=== PATIENT | female | born 1990 | race Caucasian/White ===

== ENCOUNTER 2022-04-15 15:50 | Inpatient (IN) | payer MEDICAID ==
[~2022-04-15] VITALS: Ht 167.6 cm; Wt 122.9 kg
[2022-04-15 16:02] VITALS: BP_SYST 115
--- NOTE | 2022-04-15 16:33 | NUR ---
MD STEPHENSON IN TRIAGE FOR MSE
[2022-04-15 16:39] LABS: BASOPHILS % (AUTO) 0.3 % (0.0-2.0); EOSINOPHILS # (AUTO) 0.1 K/uL (0.0-0.4); EOSINOPHILS % (AUTO) 0.8 % (0.0-4.0); HEMATOCRIT 37.1 % (36-48); HEMOGLOBIN 11.9 g/dL (12.0-16.0); MEAN CORPUSCULAR HEMOGLOBIN 21 pg (27-31); MEAN CORPUSCULAR HGB CONC 32 % (32-36); MEAN CORPUSCULAR VOLUME 67 fL (79.0-98.0); MONOCYTES # (AUTO) 0.7 K/uL (0.0-1.0); MONOCYTES % (AUTO) 7.9 % (1.7-9.3); NEUTROPHILS # (AUTO) 4.6 K/uL (1.8-7.7); PLATELET COUNT (AUTO) 199 K/uL (130-430); RED BLOOD CELL COUNT(AUTO) 5.53 MIL/uL (4.2-6.2); RED CELL DISTRIBUTION WIDTH 16.3 % (9.0-15.0); WHITE BLOOD COUNT (AUTO) 8.3 K/uL (4.8-10.8)
[2022-04-15 17:22] LABS: CREATININE 0.68 mg/dL (0.55-1.30)
[2022-04-15 17:25] LABS: ALBUMIN 3.5 g/dL (3.4-4.8)
--- NOTE | 2022-04-15 18:47 | NUR ---
PT BROUGHT BACK TO ROOM 3, CHANGING INTO GOWN. AAOX4. VSS. CARE ENDORSED TO ROBERT SAGE. BOTH SIDE RAILS UP.
--- NOTE | 2022-04-15 19:05 | NUR ---
Pt walked in to ER with c/o abdominal pain, n/v and fever x3 days. Denies any urinary symptoms. Reports h/o gastric bypass. V/S stable.
[2022-04-15 19:39] LABS: BLOOD, URINE NEGATIVE (NEGATIVE); CLARITY/URINE SL CLOUDY (CLEAR); COLOR,URINE YELLOW (YELLOW); GLUCOSE,URINE NEGATIVE (NEGATIVE); KETONES,URINE NEGATIVE (NEGATIVE); LEUKOCYTE ESTERASE ,URINE 2+ (NEGATIVE); NITRITE, URINE NEGATIVE (NEGATIVE); PROTEIN URINE NEGATIVE (NEGATIVE)
[2022-04-15 19:44] LABS: BILIRUBIN,URINE NEGATIVE (NEGATIVE)
--- NOTE | 2022-04-15 19:58 | NUR ---
Admit bed requested Patient will be admitted to care of . Admitted to MED SURG unit. Diagnosis : PANCREATITIS Inpatient (Yes or No) Y Observation (Yes or No) N Orientation concerns or request close to nursing station (Yes or No) N Covid Status : PENDING From Home (Yes or if No enter name of facility) Y
[2022-04-15] MEDS ORDERED: ONDANSETRON HCL 4 MG/2 ML VIAL IVP PRN ×2 (20:00→20:30)
--- NOTE | 2022-04-15 20:00 | NUR ---
# 22 gauge angiocath placed to L HAND. Use of asceptic technique. Opsite placed over site. Blood return noted. Flushed with 10 cc of normal saline. No evidence of infiltration noted. Patient tolerated well. Addendum: 04/15/22 at 2229 by [id number] Barbara RODGERS
[2022-04-15 20:12] LABS: BACTERIA,URINE MODERATE /HPF (None Seen); MUCUS,URINE 1+ /LPF (None Seen); RBC,URINE NONE SEEN /HPF (0-3)
[2022-04-15] MEDS: D5NS 1,000 ML IV SCH (20:28)
[2022-04-15] MEDS ORDERED: ZOLPIDEM TARTRATE 5 MG TABLET PO PRN (20:30)
[2022-04-15] MEDS ORDERED: DOCUSATE SODIUM 100 MG CAPSULE PO PRN (20:30)
[2022-04-15] MEDS ORDERED: LORazepam 2 MG/ML VIAL IVP PRN (20:30)
[2022-04-15] MEDS ORDERED: POTASSIUM CHLORIDE 20 MEQ TAB.PRT.SR PO PRN (20:30)
[2022-04-15] MEDS ORDERED: NALOXONE HCL 0.4 MG/ML AMP (NARCAN) IVP PRN ×2 (20:30)
[2022-04-15] MEDS ORDERED: ACETAMINOPHEN 325 MG TABLET PO PRN ×2 (20:30→20:45)
[2022-04-15] MEDS ORDERED: MORPHINE 2 MG/ML INJ. SYRINGE IVP PRN ×2 (20:30)
[2022-04-15] MEDS ORDERED: MUPIROCIN 2% TOPICAL OINTMENT 22 GM NS PRN (20:30)
[2022-04-15] MEDS ORDERED: MAGNESIUM SULFATE 50 ML IV PRN (20:30)
[2022-04-15] MEDS: cefTRIAXone 1 GM in D5W 50 ML IV SCH (21:19)
[2022-04-15] MEDS ORDERED: cefTRIAXone 1 GM VIAL ONE (21:20)
--- NOTE | 2022-04-15 22:38 | NUR ---
Patient will be admitted to care of MD ZAMARRIPA. Admitted to MS unit. Will go to room 122B. Complete and up to date summary report printed. SBAR report given at bedside to ALONA Shook with opportunity for questions.
[2022-04-15 23:22] VITALS: BP_SYST 130
[2022-04-16] VITALS: BP_SYST 127
[2022-04-16] MEDS: D5NS 1,000 ML IV SCH ×4 (03:33→23:27)
[2022-04-16 04:00] VITALS: BP_SYST 119
[2022-04-16 07:36] LABS: ALBUMIN 2.8 g/dL (3.4-4.8); CALCIUM 8.5 mg/dL (8.4-11.0); CREATININE 0.69 mg/dL (0.55-1.30); TOTAL BILIRUBIN 0.6 mg/dL (0.0-1.0)
--- NOTE | 2022-04-16 08:00 | NUR ---
Initial Received patient AAOx4, no signs of distress. IV infusing to right hand patent. all safety/precaution secured, bed in low position, call light w/in reached.
[2022-04-16 08:10] VITALS: BP_SYST 113
[2022-04-16 08:37] LABS: BASOPHILS % (AUTO) 0.7 % (0.0-2.0); EOSINOPHILS # (AUTO) 0.1 K/uL (0.0-0.4); EOSINOPHILS % (AUTO) 1.4 % (0.0-4.0); HEMATOCRIT 37.3 % (36-48); HEMOGLOBIN 11.6 g/dL (12.0-16.0); LYMPHOCYTES # (AUTO) 3.2 K/uL (1.0-5.5); LYMPHOCYTES % (AUTO) 57.4 % (20.5-51.5); MEAN CORPUSCULAR HEMOGLOBIN 21 pg (27-31); MEAN CORPUSCULAR HGB CONC 31 % (32-36); MEAN CORPUSCULAR VOLUME 69 fL (79.0-98.0); MONOCYTES # (AUTO) 0.5 K/uL (0.0-1.0); MONOCYTES % (AUTO) 8.6 % (1.7-9.3); NEUTROPHILS # (AUTO) 1.8 K/uL (1.8-7.7); NEUTROPHILS % (AUTO) 31.9 % (40.0-70.0); PLATELET COUNT (AUTO) 169 K/uL (130-430); RED BLOOD CELL COUNT(AUTO) 5.42 MIL/uL (4.2-6.2); RED CELL DISTRIBUTION WIDTH 16.7 % (9.0-15.0); WHITE BLOOD COUNT (AUTO) 5.5 K/uL (4.8-10.8)
[2022-04-16] MEDS: MORPHINE 2 MG/ML INJ. SYRINGE IVP PRN ×2 (10:30→17:56)
[2022-04-16 12:10] VITALS: BP_SYST 121
--- NOTE | 2022-04-16 14:10 | NUR ---
Page Dr. Rondon regarding consult to see patient
--- NOTE | 2022-04-16 14:30 | NUR ---
Dr. Rondon states he will see patient approximately [id number]
[2022-04-16 16:00] VITALS: BP_SYST 118
--- NOTE | 2022-04-16 18:11 | NUR ---
Paged Dr. Rondon, patient emotionally crying wants to see MD. Notified patient doctor on his way.
--- NOTE | 2022-04-16 19:00 | NUR ---
Closing Patient stable no c/o pain/SOB at this time, medicated as ordered. IV to right hand patent. All safety precaution secured, will endorse.
[2022-04-16] MEDS ORDERED: NALOXONE HCL 0.4 MG/ML AMP (NARCAN) IVP PRN (19:45)
[2022-04-16 20:00] VITALS: BP_SYST 129
--- NOTE | 2022-04-16 20:30 | NUR ---
Opening notes Pt AAOx4, VSS, afebrile. Pt states abd pain is ok at this time. Pt was advanced to clear liquid diet. Provided pt with apple juice and ice water, pt tolerated well. No c/o N/V. IVF infusing at ordered rate R. hand 22G good blood return. Call light within reach. To monitor.
[2022-04-16] MEDS: cefTRIAXone 1 GM in D5W 50 ML IV SCH (20:41)
--- NOTE | 2022-04-16 23:27 | NUR ---
Rounds Pt asleep, no s/s distress . Call light within reach. To monitor.
--- NOTE | 2022-04-17 00:23 | NUR ---
CONSULTATION CALLED FOR DR. Carson CASTRO FOR CONSULT OF [place] PANCREATITIS ORDER BY DR. ZAMARRIPA SPOKE WITH TATE
--- NOTE | 2022-04-17 00:27 | NUR ---
DR. CASTRO CALLED BACK AND STATE HE SAW PATIENT IN THE AFTERNOON 04/16/2022
--- NOTE | 2022-04-17 00:30 | NUR ---
CONSULTATION CALLED FOR DR. RANDY BURTON IS INCOME [employer] CONSULTANT FOR CONSULT OF GALLSTONE PANCREATITIS ORDER BY DR. ZAMARRIPA SPOKE WITH CHIQUITA
[2022-04-17 01:31] VITALS: BP_SYST 109; BP_SYST 132
[2022-04-17] MEDS: D5NS 1,000 ML IV SCH ×3 (04:19→17:59)
--- NOTE | 2022-04-17 06:20 | NUR ---
Closing notes Pt asleep, no s/s distress, no c/o pain or N/V at this time. IVF infusing at ordered rate R. hand 22G clear and patent. Call light within reach. To endorse to AM nurse.
[2022-04-17 07:48] LABS: ALBUMIN 2.6 g/dL (3.4-4.8); BILIRUBIN,DIRECT 0.2 mg/dL (0.0-0.3); CALCIUM 8.4 mg/dL (8.4-11.0); CREATININE 0.62 mg/dL (0.55-1.30); TOTAL BILIRUBIN 0.6 mg/dL (0.0-1.0)
--- NOTE | 2022-04-17 08:00 | NUR ---
OPENING NOTES ALERT AND ORIENTED. NO SHORTNESS OF BREATH ON ROOM AIR. NO PAIN. IV INFUSING WELL. SAFETY CHECKS DONE. CALL LIGHT WITHIN REACH.
[2022-04-17 08:13] VITALS: BP_SYST 133
--- NOTE | 2022-04-17 09:00 | NUR ---
MD ROUNDS SEEN BY DR. ZAMARRIPA. INFORMED THAT THERE IS NO ORDER FOR A PROCEDURE YET FROM DR. CASTRO.
[2022-04-17 11:09] VITALS: BP_SYST 103
--- NOTE | 2022-04-17 12:40 | NUR ---
ROUNDS MAINTAINED ON NPO. SWABBED FOR MRSA SCREENING. SAFETY CHECKS DONE. CALL LIGHT WITHIN REACH.
--- NOTE | 2022-04-17 13:00 | NUR ---
CONSENT PER PATIENT, DR. CASTRO ALREADY TALKED TO HER ABOUT PROCEDURE. WITNESSED CONSENT.
--- NOTE | 2022-04-17 15:30 | NUR ---
Dietitian Recommendations * Consider Clear Liquid diet post-surgery * When appropriate, consider advancing to GI Soft diet Submitted for Kimberley Oh by Mirela Nunez, MPH, RD Please see Nutrition Assessment for further details Addendum: 04/17/22 at [address] Amended: Links added.
[2022-04-17 16:39] LABS: HCG,QUAL RESULT NEGATIVE (NEGATIVE)
[2022-04-17 17:16] VITALS: BP_SYST 109
--- NOTE | 2022-04-17 18:20 | NUR ---
CLOSING NOTES RESTING. NO SHORTNESS OF BREATH. NO PAIN. IV INFUSING WELL. PATIENT IS AWARE THAT PROCEDURE WAS MOVED TO 1999. KEPT ON NPO. ALL NEEDS MET THROUGHOUT SHIFT. SAFETY CHECKS DONE. CALL LIGHT WITHIN REACH.
[2022-04-17 19:30] VITALS: BP_SYST 133
--- NOTE | 2022-04-17 19:46 | NUR ---
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 VSS. Mom at bedside.
[2022-04-17] MEDS ORDERED: BUPIVACAINE /EPINEPHRINE/PF 0.5% 30 ML VIAL INJ ONE (20:00)
[2022-04-17] MEDS ORDERED: SUGAMMADEX SODIUM 200 MG/2 ML VIAL IV ONE (20:00)
[2022-04-17] MEDS ORDERED: ROCURONIUM BROMIDE 10 MG/ML (ZEMURON) ONE (20:00)
[2022-04-17] MEDS ORDERED: ONDANSETRON HCL 4 MG/2 ML VIAL ONE (20:00)
[2022-04-17] MEDS ORDERED: DEXAMETHASONE SOD PHOSPHATE 4 MG/ML VIAL ONE (20:00)
[2022-04-17] MEDS ORDERED: METOCLOPRAMIDE HCL 10 MG/2 ML VIAL ONE (20:00)
[2022-04-17] MEDS ORDERED: ceFAZolin SODIUM 1 GM VIAL ONE (20:00)
[2022-04-17] MEDS ORDERED: HYDROmorphone 2 MG/ML VIAL ONE (20:00)
[2022-04-17] MEDS ORDERED: ePHEDrine sulfate 50 MG/ML VIAL ONE (20:00)
[2022-04-17] MEDS ORDERED: NS 1000 ML IV.SOLN IV ONE (20:00)
[2022-04-17] MEDS ORDERED: PROPOFOL 200MG/ 20ML VIAL (DIPRIVAN) IV ONE (20:00)
[2022-04-17] MEDS ORDERED: NS IRRIG SOLN 1000 ML IR ONE (20:00)
[2022-04-17] MEDS ORDERED: MIDAZOLAM HCL 2 MG/2 ML VIAL (VERSED) ONE (20:00)
[2022-04-17] MEDS ORDERED: LR 1,000 ML IV.SOLN IV ONE (20:00)
[2022-04-17] MEDS ORDERED: SEVOFLURANE 15 MIN GAS INH ONE (20:00)
[2022-04-17] MEDS ORDERED: KETOROLAC TROMETHAMINE 30 MG VIAL IVP PRN (22:00)
[2022-04-17] MEDS ORDERED: HYDROmorphone 1 MG/ML INJ. CARTRIDGE IVP PRN ×2 (22:00)
[2022-04-17] MEDS ORDERED: NALOXONE HCL 0.4 MG/ML AMP (NARCAN) IVP PRN ×4 (22:00→22:30)
[2022-04-17] MEDS ORDERED: ONDANSETRON HCL 4 MG/2 ML VIAL IVP PRN (22:00)
[2022-04-17] MEDS ORDERED: HYDROcodone/ACETAMIN 5-325 MG TAB (NORCO/ VICODIN) PO PRN (22:30)
[2022-04-17] MEDS ORDERED: KETOROLAC TROMETHAMINE 30 MG VIAL ONE (22:36)
--- NOTE | 2022-04-17 22:59 | NUR ---
BACK FROM SURGERY Received pt back from PACU, report received from ALONA Wong. Pt AAOx4, VSS, on room air. Abd incision lap sites x4, dressing C/D/I. Pt states pain is tolerable at this time. Pt was medicated with Toradol in PACU. IVF connected back as ordered and IV abx administered. Call light within reach. Mom at bedside. To monitor.
[2022-04-17] MEDS: cefTRIAXone 1 GM in D5W 50 ML IV SCH (23:12)
--- NOTE | 2022-04-17 23:20 | NUR ---
Rounds/Incentive Spirometer Pt instructed to use I.S. 10x while awake, pt ableto do 1000ml 3x.
[2022-04-17] MEDS: HYDROmorphone 1 MG/ML INJ. CARTRIDGE IM PRN (23:33)
[2022-04-18 00:42] VITALS: BP_SYST 144
[2022-04-18] MEDS: D5NS 1,000 ML IV SCH ×2 (01:30→06:53)
[2022-04-18] MEDS: HYDROmorphone 1 MG/ML INJ. CARTRIDGE IM PRN (03:40)
--- NOTE | 2022-04-18 06:20 | NUR ---
Closing notes/Ambulated Pt alert, awake, no s/s distress noted. Pt disconnected from IV and SCDs at this time. Pt ambulated to bathroom, pt denies dizziness. Pt voided dark yellow urine 600ml. Abd lap sites C/D/I. Call light within reach. To endorse to AM nurse.
[2022-04-18 07:56] LABS: ALBUMIN 3.1 g/dL (3.4-4.8); CALCIUM 8.9 mg/dL (8.4-11.0); CREATININE 0.67 mg/dL (0.55-1.30); TOTAL BILIRUBIN 0.6 mg/dL (0.0-1.0)
[2022-04-18] MEDS ORDERED: HYDR-3917 PO (08:24)
[2022-04-18 11:45] VITALS: BP_SYST 124
--- NOTE | 2022-04-18 13:00 | NUR ---
patient c/o 08/17 pain in abdomen, norco administered per emar
--- NOTE | 2022-04-18 13:10 | NUR ---
Telephone call to Dr. Rondon, patient cleared to [facility]
[2022-04-18 14:10] VITALS: BP_SYST 124
--- NOTE | 2022-04-18 15:25 | NUR ---
patient dc home, alert and oriented able to verbalize needs, dc education provided regarding meds, post op care, follow up appointments and when to seek medical attention, iv in r hand dc with cath intact, wheeled out to lobby by aircraft manager, transported home via private car, no further concerns
== END 2022-04-18 15:10 | disposition home or self-care (01) | DRG 263 ==
LOC: SED 15:50 → SMU 19:53
PROVIDERS: ADMIT General Practice; ATTEND General Practice
PROC: BF131ZZ Fluoroscopy of Gallbladder and Bile Ducts using Low Osmolar Contrast (ICD-10-PCS; 2022-04-17)
PROC: 0FT44ZZ Resection of Gallbladder, Percutaneous Endoscopic Approach (ICD-10-PCS; principal; 2022-04-17 20:00)
DX: K85.10 Biliary acute pancreatitis without necrosis or infection (principal); E83.41 Hypermagnesemia; K80.10 Calculus of gallbladder with chronic cholecystitis without obstruction; E66.01 Morbid (severe) obesity due to excess calories; N39.0 Urinary tract infection, site not specified; K21.9 Gastro-esophageal reflux disease without esophagitis; Z20.822 Contact with and (suspected) exposure to COVID-19; F12.10 Cannabis abuse, uncomplicated; K66.0 Peritoneal adhesions (postprocedural) (postinfection); R74.01 Elevation of levels of liver transaminase levels; Z98.84 Bariatric surgery status; Z68.41 Body mass index [BMI] 40.0-44.9, adult
CPT/HCPCS: 36415; 76000; 76705; 80048; 80053; 80061; 80076; 81000; 83037; 83690; 83735; 84703; 85025; 87081; 87086; 88304; 99285; C1727; C1758; J0690; J0696; J1100; J1170; J1885; J2270; J2405; J2704; J2765; J3465; J3490; J7030; J7060; J7120; Q9967

== ENCOUNTER 2022-10-20 18:57 | Emergency (ER) | payer MEDICAID ==
[~2022-10-20] VITALS: Ht 167.6 cm; Wt 131.5 kg
[~2022-10-20 18:57] MED LIST: HYDR-3917 PO
[2022-10-20 19:33] VITALS: BP_SYST 125; PULSE 74; RESP 18; TEMP 98.3; O2SAT 98
[2022-10-20] MEDS ORDERED: ONDANSETRON 4 MG ODT TAB PO ONE (19:45)
[2022-10-20 20:10] LABS: BASOPHILS # (AUTO) 0.1 K/uL (0.0-0.2); BASOPHILS % (AUTO) 0.6 % (0.0-2.0); EOSINOPHILS # (AUTO) 0.1 K/uL (0.0-0.4); EOSINOPHILS % (AUTO) 0.6 % (0.0-4.0); HEMATOCRIT 40.1 % (36-48); HEMOGLOBIN 12.3 g/dL (12.0-16.0); LYMPHOCYTES # (AUTO) 3.2 K/uL (1.0-5.5); LYMPHOCYTES % (AUTO) 29.4 % (20.5-51.5); MEAN CORPUSCULAR HEMOGLOBIN 20 pg (27-31); MEAN CORPUSCULAR HGB CONC 31 % (32-36); MEAN CORPUSCULAR VOLUME 66 fL (79.0-98.0); MONOCYTES # (AUTO) 0.6 K/uL (0.0-1.0); MONOCYTES % (AUTO) 5.8 % (1.7-9.3); NEUTROPHILS % (AUTO) 63.6 % (40.0-70.0); PLATELET COUNT (AUTO) 222 K/uL (130-430); RED BLOOD CELL COUNT(AUTO) 6.09 MIL/uL (4.2-6.2); RED CELL DISTRIBUTION WIDTH 16.8 % (9.0-15.0)
[2022-10-20] MEDS ORDERED: KETOROLAC TROMETHAMINE 30 MG VIAL IM ONE (20:15)
[2022-10-20 20:18] LABS: CALCIUM 8.9 mg/dL (8.4-11.0); CREATININE 0.71 mg/dL (0.55-1.30); POTASSIUM 3.8 mmol/L (3.5-5.1)
[2022-10-20 20:22] LABS: ALBUMIN 3.7 g/dL (3.4-4.8); TOTAL BILIRUBIN 0.6 mg/dL (0.0-1.0); TOTAL PROTEIN, SERUM 7.2 g/dL (6.4-8.3)
[2022-10-20 20:36] LABS: SERUM HCG (QUALITATIVE) NEGATIVE (NEGATIVE)
[2022-10-20] MEDS ORDERED: HYDROcodone/ACETAMIN 10-325 MG TAB PO ONE (20:45)
[2022-10-20 21:29] LABS: BILIRUBIN,URINE 1+ (NEGATIVE); COLOR,URINE YELLOW (YELLOW); GLUCOSE,URINE NEGATIVE (NEGATIVE); KETONES,URINE 2+ (NEGATIVE); LEUKOCYTE ESTERASE ,URINE 1+ (NEGATIVE); NITRITE, URINE NEGATIVE (NEGATIVE); PH,URINE 6.5 (5.0-8.0); PROTEIN URINE 1+ (NEGATIVE); UROBILINOGEN,URINE 0.2 (0.2-1.0)
[2022-10-20 21:31] LABS: BLOOD, URINE TRACE (NEGATIVE); CLARITY/URINE HAZY (CLEAR)
[2022-10-20 21:40] LABS: HYPOCHROMASIA 1+
[2022-10-20 21:41] LABS: ANISOCYTOSIS 1+; OVALOCYTES MODERATE; TARGET CELLS FEW; TEAR DROP CELLS FEW
[2022-10-20] MEDS ORDERED: SULFAMETHOXAZOLE/TRIMETHOPR DS 1 TABLET PO ONE (21:45)
[2022-10-20 22:03] LABS: BACTERIA,URINE MANY /HPF (None Seen); MUCUS,URINE 1+ /LPF (None Seen)
[2022-10-20] MEDS ORDERED: IBUP-1971 PO (22:17)
[2022-10-20] MEDS ORDERED: SULF1TAB48 PO (22:17)
[2022-10-20] MEDS ORDERED: ONDA-8 TL (22:17)
[2022-10-20 22:58] VITALS: BP_SYST 125; PULSE 74; RESP 18; TEMP 98.3; O2SAT 98
== END 2022-10-20 22:58 | disposition home or self-care (01) ==
LOC: SED 18:57
DX: N39.0 Urinary tract infection, site not specified (principal); A08.4 Viral intestinal infection, unspecified; R11.10 Vomiting, unspecified; R19.7 Diarrhea, unspecified; Z79.899 Other long term (current) drug therapy
CPT/HCPCS: 99285; 74176; 80053; 81000; 84703; 83690; 85025; 87086; 36415; 76376; 96372; Q0162; J1885